=== PATIENT | female | born 1940 | race Caucasian/White ===

== ENCOUNTER 2021-03-09 10:12 | Emergency (ER) | payer MEDICARE, MEDICAID, SELFPAY ==
[2021-03-09 10:31] VITALS: BP 169/76; PULSE 96; RESP 18; TEMP 36.4; O2SAT 98; BMI 26.8
--- NOTE | 2021-03-09 13:04 | ED_ITS ---
HPI - General Adult General Chief complaint: General Medical Stated complaint: FACIAL PAIN R SIDE Time Seen by Provider: 03/09/21 12:38 Source: patient Mode of arrival: ambulatory Limitations: no limitations History of Present Illness HPI narrative: 80-year-old female who presents emergency department for evaluation right-sided facial pain. The patient states that yesterday she developed a pain on the right side of her face along the nasal bridge. The pain started when she was eating. She states the pain then resolved and came back at 11:00 p.m.. She states the pain has been constant. She describes the pain is a sharp pain is if something is blocked. The pain waxes and wanes in intensity and occasionally is 10/10. She states she has had nasal congestion. She has had multiple sinus infections and states that she has had a similar pain but the pain has never been this severe. The patient had a right total knee replacement 2 weeks prior. She denied fever, chills, chest pain, shortness of breath, nausea, vomiting. Related Data Previous Rx's Medication Instructions Recorded cephalexin 500 mg capsule 500 mg PO TID 10 Days #30 cap 03/09/21 Allergies Allergy/AdvReac Type Severity Reaction Status Date / Time amoxicillin Allergy Unknown Verified 03/09/21 10:30 doxycycline Allergy Unknown Verified 03/09/21 10:30 Penicillins Allergy Unknown Verified 03/09/21 10:30 sulfamethoxazole Allergy Unknown Verified 03/09/21 10:30 [From Bactrim] trimethoprim [From Allergy Unknown Verified 03/09/21 10:30 Bactrim] Review of Systems Verdana 4l Review of Systems: Yes all other systems are reviewed and Verdana 4d are negative [facility] Past Medical History [facility] Narrative: Past surgical history: Right total knee replacement 2 weeks prior. Social history: She denies tobacco use. She occasionally drinks alcohol. She denies drug use. Medical History GERD (gastroesophageal reflux disease) HTN (hypertension) Rheumatoid arthritis Surgical History Total knee replacement status Physical Exam Verdana 4l Vital Signs: Verdana 4d Verdana 4d Vital Signs: Verdana 4d Verdana 4Bd Last Vital Signs Verdana 4d Real Estate Agent New 4d Real Estate Agent New 4d Temp 97.5 F 03/09/21 10:31 Real Estate Agent New 4d Pulse 96 03/09/21 10:31 Real Estate Agent New 4d Resp 18 03/09/21 10:31 BP 169/76 H 03/09/21 10:31 Pulse Ox 98 03/09/21 10:31 BMI result Body Mass Index 26.8 Const: General: cooperative and no acute distress Orientation/consciousness: oriented to person and oriented to place Limitations: no limitations HENMT: Other: The patient does have some slight swelling along the right maxillary sinus and right nasal fold, this area is tender to palpation, there is no erythema or increased warmth to the skin, she has tenderness with palpation over her right maxillary sinus with no tenderness over the left maxillary sinus or frontal sinuses bilaterally. Head: Yes normal to inspection, Yes normocephalic and Yes atraumatic Ears: external ears normal and TM's normal bilaterally Mouth: Normal oral and palatal mucosa present Throat: Yes posterior oropharynx normal Eyes: General: appearance normal, both eyes and all related structures Pupils: Equal, round and reactive pupils present Neck: Neck: Yes normal visual inspection, Yes no lymphadenopathy, Yes trachea midline and Yes supple Chest: Chest palpation & inspection: normal inspection of the chest and normal palpation of entire chest wall Resp: Effort & Inspection: normal respiratory effort and able to speak in complete sentences Auscultation: clear to auscultation bilaterally Cardio: Rate: regular rate Rhythm: regular rhythm Heart sounds: S1 normal heart sound present, S2 normal heart sound present and no murmurs GI: Inspection: Yes normal to inspection Palpation (GI): Soft to palpation, nontender and no guarding Auscultation: normal bowel sounds : General: Yes no CVA tenderness Back/Spine/Pelvis: Back: no CVA tenderness Skin: General skin exam: no rashes or lesions noted Neuro: General: oriented to person and oriented to place Cranial nerves: Yes CN's II-XII intact bilaterally and Yes Equal, round and reactive pupils present Cognition (Neuro): normal cognition Motor exam (neuro): 5/5 motor strength present throughout Extrem: Other: There is a dressing over the left knee which was not taken down. Patient is able to flex extend her knee without any limitations. Psych: Appearance: grossly normal Speech and movement: Normal speech and movement present Affect: normal affect Attitude: cooperative Thought process: Normal thought process present Course Course Course Narrative: 80-year-old female who presents emergency department for evaluation of right- sided facial pain which began yesterday when she was eating and then has been constant since 2300 hours. The patient does have some slight swelling over the right side of her face with tenderness with palpation of this area and tenderness with palpation of her right maxillary sinus. My impression is the patient has a sinus infection I did discuss this with her. Patient was started on Keflex 500 mg 3 times a day for 10 days. She was advised to take extra- strength Tylenol 2 pills every 4-6 hours as needed for pain. She states she has oxycodone left over for knee surgery and she can take this for pain as well. She was given printed and verbal instructions and discharged home. Discharge Plan Discharge Clinical Impression: Sinusitis Qualifiers: Sinusitis location: maxillary Chronicity: acute Patient Disposition: Home, Self-Care Instructions: Sinusitis (ED) Additional Instructions: At this time, I believe that your pain and your facial tenderness is due to a sinus infection. Take Keflex (cephalexin) 500 mg capsules, 1 pill 3 times a day for 10 days. Take Tylenol (acetaminophen) 500 mg pills, 2 pills every 4-6 hours as needed for pain. Follow-up with your doctor in 2 days. Please return to the emergency department if your symptoms get worse or if you develop any symptoms that are concerning to you. Prescriptions: New cephalexin 500 mg capsule 500 mg PO TID 10 Days Qty: 30 0RF
[2021-03-09] MEDS: Acetaminophen 325 MG TABLET 975 MG PO (13:46)
[2021-03-09] MEDS: cephALEXin 500 MG CAPSULE PO (13:46)
[2021-03-09 13:57] VITALS: BP 167/79; PULSE 99; RESP 18; TEMP 36.9; O2SAT 97
== END 2021-03-09 14:00 | disposition home or self-care (01) ==
PROVIDERS: Emergency Provider Emergency Medicine Emergency Medical Services
DX: J01.00 Acute maxillary sinusitis, unspecified (principal); I10 Essential (primary) hypertension
CPT/HCPCS: 99283; 99284

== ENCOUNTER 2021-03-11 12:18 | Emergency (ER) | payer MEDICARE, MEDICAID, SELFPAY ==
--- NOTE | ~2021-03-11 | CT_ITS ---
EXAMINATION: CT MAXILLOFACIAL WITH CONTRAST CLINICAL INFORMATION: Right-sided facial swelling and pain. COMPARISON: None. TECHNIQUE: Multidetector helical imaging was performed in the axial plane with generation of coronal and sagittal reformatted images. The examination was performed after intravenous administration of 85 mL of Omnipaque [address] examination was performed using dose optimization techniques as appropriate, variously including the following: *Automated exposure control *Adjustment of mA and/or kV according to patient size (this includes techniques or standardized protocols for targeted exams where dose is matched to indication/reason for exam; i.e. extremities or head) *Use of iterative reconstruction technique DLP: 379 mGy-cm. FINDINGS: The paranasal sinuses are well aerated. No air-fluid levels are seen. There is a rightward deviation of the nasal septum. The ostiomeatal complexes are clear. The lamina papyracea are intact. The ethmoid roofs are asymmetric. The carotid canals are normally covered by bone. No soft tissue inflammatory changes are identified, though assessment at the level of the oral cavity is somewhat limited due to extensive dental amalgam artifacts. A multinodular thyroid gland is partially visualized. No cervical adenopathy is seen. The carotid sheath vasculature opacifies normally. There is no abnormal enhancement. No periapical disease is seen. The mastoid air cells and visualized middle ear cavities are well aerated. The orbits are normal. The TMJs are unremarkable. The imaged portions of the brain demonstrate no acute abnormality. CT/CT facial bones w con IMPRESSION: No soft tissue inflammatory changes or acute process with limited assessment the level of the oral cavity due to dental amalgam artifacts. No abnormal enhancement. Clear paranasal sinuses. Partially visualized multinodular thyroid gland.
[2021-03-11 12:43] VITALS: BP 156/66; PULSE 97; RESP 16; TEMP 36; O2SAT 98; BMI 26.8
[2021-03-11 14:07] LABS: MANUAL DIFF FLAG NO
--- NOTE | 2021-03-11 14:11 | ED_ITS ---
HPI - General Adult General Chief complaint: General Medical Stated complaint: Sinus pain Time Seen by Provider: 03/11/21 13:12 Source: patient and family Mode of arrival: ambulatory Limitations: no limitations History of Present Illness HPI narrative: 80-year-old female with a past medical history of GERD, hypertension, rheumatoid arthritis here with reports of right-sided facial pain. Of note the patient was seen here on March 09 for similar complaints and diagnosed with a sinus infection and discharged on cephalexin. Patient tells me she has taken 6 doses of the antibiotic but is continuing to have pain. Patient tells me the pain is constant over the right face it is worsened with moving her mouth, eating or drinking. Patient tells me that she does have history of multiple sinus infections previously and this does feel similar but is much more severe in nature. The patient had a total right knee 2 weeks ago. She has some oxycodone home and she did take 1 dose yesterday which seemed to help her pain. No fevers, chills, difficulty swallowing or breathing. Patient does have pain that is worsened with opening her mouth. She tells me that she feels like her right-sided for sinuses is clogged. There is no nasal drainage. Related Data Previous Rx's Medication Instructions Recorded cephalexin 500 mg capsule 500 mg PO TID 10 Days #30 cap 03/09/21 carbamazepine 100 mg 100 mg PO BID #60 tab 03/11/21 tablet,extended release,12 hr Allergies Allergy/AdvReac Type Severity Reaction Status Date / Time amoxicillin Allergy Unknown Verified 03/09/21 10:30 doxycycline Allergy Unknown Verified 03/09/21 10:30 Penicillins Allergy Unknown Verified 03/09/21 10:30 sulfamethoxazole Allergy Unknown Verified 03/09/21 10:30 [From Bactrim] trimethoprim [From Allergy Unknown Verified 03/09/21 10:30 Bactrim] Review of Systems Verdana 4l Review of Systems: Yes all other systems are reviewed and Verdana 4d are negative Verdana 4l Constitutional: Verdana 4d Constitutional: Verdana 4d Verdana 4d Reports no additional constitutional complaints, Denies body ache(s), Denies chills, Denies fever(s), Denies headache(s) and Denies weakness Verdana 4l Eyes: Verdana 4d Verdana 4d Eyes: Verdana 4d Reports no additional eye complaints and Denies change in vision Verdana 4l ENT: Verdana 4d Reports system reviewed and no additional complaints, except as documented, Denies dizziness, Denies headache(s), Reports nasal congestion, Denies nasal discharge, Denies neck pain, Reports sinus pain and Reports sinus pressure Verdana 4l Cardiovascular: Verdana 4d Cardiovascular: Verdana 4d Verdana 4d Reports no additional cardiovascular complaints, Denies chest pain, Denies leg edema and Denies dyspnea Verdana 4l Respiratory: Verdana 4d Verdana 4d Respiratory: Verdana 4d Reports no additional respiratory complaints, Denies cough and Denies dyspnea Verdana 4l Gastrointestinal: Verdana 4d Gastrointestinal: Verdana 4d Verdana 4d Reports no additional gastrointestinal complaints, Denies abdominal pain, Denies diarrhea, Denies nausea and Denies vomiting Verdana 4l Genitourinary: Verdana 4d Verdana 4d Genitourinary: Verdana 4d Reports no additional female genitourinary complaints and Denies urinary incontinence Verdana 4l Musculoskeletal: Verdana 4d Musculoskeletal: Verdana 4d Verdana 4d Reports no additional musculoskeletal complaints, Denies back pain, Denies arthralgias, Denies joint swelling, Denies neck pain, Denies numbness and Denies tingling Verdana 4l Integumentary/Breasts: Verdana 4d Skin/Breast: Verdana 4d Verdana 4d Reports system reviewed and no additional complaints, except as docu and Denies rash Verdana 4l Neurologic: Verdana 4d Reports system reviewed and no additional complaints, except as documented, Denies Abnormal speech present, Denies dizziness, Denies headache(s), Denies numbness, Denies tingling and Denies weakness PMFSH Past Medical History Attestation statement: The following information was validated with the patient. Source: old records reviewed and nursing notes reviewed Medical History GERD (gastroesophageal reflux disease) HTN (hypertension) Rheumatoid arthritis Surgical History Total knee replacement status Social History Social History Advance Directives: No Advance Directives Information Provided: No Physical Exam Verdana 4l Vital Signs: Verdana 4d Verdana 4d Vital Signs: Verdana 4d Verdana 4Bd Last Vital Signs Verdana 4d Pet Adoption Counselor New 4d Pet Adoption Counselor New 4d Temp 96.8 F 03/11/21 12:43 Pet Adoption Counselor New 4d Pulse 86 03/11/21 17:16 Pet Adoption Counselor New 4d Resp 14 03/11/21 17:16 BP 140/88 H 03/11/21 15:13 Pulse Ox 97 03/11/21 17:16 BMI result Body Mass Index 26.8 Const: General: cooperative, healthy appearing, comfortable and no acute distress Orientation/consciousness: patient oriented x3 Limitations: no limitations HENMT: Other: No temporal artery tenderness Head: Yes normal to inspection Ears: hearing grossly normal bilaterally and TM's normal bilaterally General nose exam: Normal external nose present and Abnormal mucous membranes and turbinates present (Right side with erythema and swelling) Face and sinus: Yes normal facial exam and Yes sinus tenderness (Right-sided tenderness to palpate) Mouth: Normal oral and palatal mucosa present Throat: Yes posterior or opharynx normal, Yes tonsils normal and Yes uvula midline Eyes: General: appearance normal, both eyes and all related structures Pupils: Equal, round and reactive pupils present Neck: Neck: Yes normal visual inspection, Yes full ROM, Yes no lymphadenopathy and Yes no meningeal signs Chest: Chest palpation & inspection: normal inspection of the chest Resp: Effort & Inspection: normal respiratory effort Auscultation: clear to au scultation bilaterally Cardio: Rate: regular rate Rhythm: regular rhythm Peripheral pulses: Peripheral pulses 2+ throughout GI: Inspection: Yes normal to inspection Palpation (GI): Soft to palpation and nontender Auscultation: normal bowel sounds Back/Spine/Pelvis: Thoracic/Lumbar Spine: thoracic and lumbar spine normal to inspection Skin: General skin exam: no rashes or lesions noted Neuro: General: patient oriented x3, no meningeal signs, no focal motor deficits and normal sensation to monofilament Cranial nerves: Yes CN's II-XII intact bilaterally, Yes Equal, round and reactive pupils present, Yes Bilaterally intact EOM present, Yes Nystagmus not present and Yes Normal facial strength present Cognition (Neuro): normal cognition Speech: No Abnormal speech present Gait exam (Neuro): Normal gait present Motor exam (neuro): 5/5 motor strength present throughout Sensory Exam: Normal double simultaneous stimulation for sensation Extrem: General: Yes normal to inspection Course Course Course Narrative: 80-year-old female here with reports of right-sided facial pain and swelling with a feeling of sinus pressure and congestion since 03/08. Started on cephalexin on March 09 as patient felt that this was similar to her previous sinus infections. Patient has taken 6 doses with continued symptoms. Symptoms now seem worsened with drinking, eating, movement of the jaw and face. On exam there is some slight swelling and certainly tenderness over the right maxillary sinus. There is also some nasal turbinate erythema and swelling on exam. The face is exquisitely tender on the right side to touch and is worsened with any talking or movement of the jaw. Will check labs, CT facial bones, provide analgesia 1739-CT negative. Labs are unremarkable with the exception of mildly inflammatory markers are elevated. Exam is consistent with trigeminal neuralgia. This was discussed with Dr. Shaikh and our plan was to start the patient on Tegretol 100 mg twice a day with her following up with Neurology and primary care. Reviewed worrisome signs and symptoms of when to return to the emergency d epartment. Comfortable discharge home. Medical Decision Making MDM Narrative Medical decision making narrative: Trigeminal neuralgia, temporal arteritis, facial cellulitis versus abscess Medical Records Medical records reviewed: Yes I reviewed the patient's medical records. Lab Data Lab results reviewed: Yes I reviewed the patient's lab results. Result diagrams: 03/11/21 14:01 03/11/21 14:01 Labs: Lab Results 03/11/21 03/11/21 03/11/21 Range/Units 14:01 14:01 14:01 WBC 6.2 (4.8-10.8) X10*3/uL RBC 4.12 L (4.20-5.50) X10*6/uL Hgb 11.9 L (12.0-16.0) g/dl Hct 37.9 (37.0-47.0) % MCV 92.0 (80.0-98.0) fL MCH 28.9 (27.0-33.0) pg MCHC 31.4 (31.0-35.0) g/dl RDW 14.2 (11.0-16.0) % Plt Count 401 H (160-400) X10*3/uL MPV 9.9 (9.4-12.3) fL Immature Gran % (Auto) 0.3 (0.0-0.4) % Neut % (Auto) 56.9 (45-73) % Lymph % (Auto) 20.9 (20-40) % [place] % (Auto) 9.4 (2-11) % Eos % (Auto) 10.2 H (0-4) % Baso % (Auto) 2.3 H (0-2) % Lymph # (Auto) 1.3 (1.2-4.9) X10*3/uL [place] # (Auto) 0.6 (0.1-1.2) X10*3/uL Eos # (Auto) 0.6 H (0.0-0.4) X10*3/uL Baso # (Auto) 0.1 (0.0-0.2) X10*3/uL Abs Immat Gran (auto) 0.02 (0.00-0.03) X10*3/uL Absolute Neuts (auto) 3.5 (2.0-8.3) x10*3/uL Absolute Nucleated RBC 0.000 (0.0-0.012) X10*3/uL Nucleated RBC % (auto) 0.0 (0.0-0.2) /100WBC ESR 28 H (0-20) MM/HR Sodium 140 (135-145) mmol/L Potassium 4.5 (3.3-5.1) mmol/L Chloride 105 (96-108) mmol/L Carbon Dioxide 27 (22-29) mmol/L Anion Gap 13 (12-20) BUN 18 H (9-16) mg/dL Creatinine 0.61 (0.5-1.4) mg/dL Estim Creat Clear Calc 62.1 Estimated GFR > 60 Random Glucose 93 (60-115) mg/dL Calcium 9.4 (8.4-10.2) mg/dL C-Reactive Protein 0.78 H (< or = 0.50) mg/dL Imaging Data CT scan - head: Attestation: I personally reviewed and interpreted this imaging study as follows: Radiologist's impression: FINDINGS: The paranasal sinuses are well aerated. No air-fluid levels are seen. There is a rightward deviation of the nasal septum. The ostiomeatal complexes are clear. The lamina papyracea are intact. The ethmoid roofs are asymmetric. The carotid canals are normally covered by bone. No soft tissue inflammatory changes are identified, though assessment at the level of the oral cavity is somewhat limited due to extensive dental amalgam artifacts. A multinodular thyroid gland is partially visualized. No cervical adenopathy is seen. The carotid sheath vasculature opacifies normally. There is no abnormal enhancement. No periapical disease is seen. The mastoid air cells and visualized middle ear cavities are well aerated. The orbits are normal. The TMJs are unremarkable. The imaged portions of the brain demonstrate no acute abnormality. CT/CT facial bones w con IMPRESSION: No soft tissue inflammatory changes or acute process with limited assessment the level of the oral cavity due to dental amalgam artifacts. No abnormal enhancement. Clear paranasal sinuses. Partially visualized multinodular thyroid gland. Discharge Plan Discharge Clinical Impression: Trigeminal neuralgia Patient Disposition: Home, Self-Care Instructions: Trigeminal Neuralgia (ED) Additional Instructions: Continue your antibiotics Follow-up with neurology Soft diet Prescriptions: New carbamazepine 100 mg tablet extended release 12 hr 100 mg PO BID Qty: 60 0RF No Action cephalexin 500 mg capsule 500 mg PO TID 10 Days Qty: 30 0RF Referrals: Ellie Peña MD [Primary Care Provider] - 2 weeks Alex Maloney MD [Physician] - 1 week
[2021-03-11 14:15] LABS: Basophils Absolute Auto 0.1 X10*3/uL (0.0-0.2); Basophils Percent Auto 2.3 % (0-2); Eosinophils Absolute Auto 0.6 X10*3/uL (0.0-0.4); Eosinophils Percent Auto 10.2 % (0-4); Hematocrit 37.9 % (37.0-47.0); Hemoglobin 11.9 g/dl (12.0-16.0); Imm Gran Abs Auto 0.02 X10*3/uL (0.00-0.03); Imm Gran Pct Auto 0.3 % (0.0-0.4); Lymphocytes Absolute Auto 1.3 X10*3/uL (1.2-4.9); Lymphocytes Percent Auto 20.9 % (20-40); Mean Corpuscular HGB Conc 31.4 g/dl (31.0-35.0); Mean Corpuscular Hemoglobin 28.9 pg (27.0-33.0); Mean Platelet Volume 9.9 fL (9.4-12.3); Monocytes Absolute Auto 0.6 X10*3/uL (0.1-1.2); Monocytes Percent Auto 9.4 % (2-11); Neutrophils Absolute Auto 3.5 x10*3/uL (2.0-8.3); Neutrophils Percent Auto 56.9 % (45-73); Platelet Count 401 X10*3/uL (160-400); Red Blood Count 4.12 X10*6/uL (4.20-5.50); Red Cell Distribution Width 14.2 % (11.0-16.0); White Blood Count 6.2 X10*3/uL (4.8-10.8)
[2021-03-11 14:23] LABS: Anion Gap 13 (12-20); Blood Urea Nitrogen 18 mg/dL (9-16); C Reactive Protein 0.78 mg/dL (< or = 0.50); Calcium 9.4 mg/dL (8.4-10.2); Carbon Dioxide 27 mmol/L (22-29); Chloride 105 mmol/L (96-108); Creatinine Clr Calc Pharmacy 62.1; Estimated Glomerular Filt Rate > 60; Glucose Random 93 mg/dL (60-115); Potassium 4.5 mmol/L (3.3-5.1); Sodium 140 mmol/L (135-145)
[2021-03-11] MEDS: Morphine Sulfate 2 MG/ML CARTRIDGE 1 MG IVPUSH (14:29)
[2021-03-11] MEDS: ondansetron HCL 4 MG/2 ML VIAL IVPUSH (14:30)
[2021-03-11 15:06] LABS: Erythrocyte Sedimentation Rate 28 MM/HR (0-20)
[2021-03-11 15:13] VITALS: BP 140/88; PULSE 78; RESP 16; O2SAT 100
[2021-03-11] MEDS: iohexoL 350 MG/ML 100 ML INFUS..BTL IV (15:30)
[2021-03-11] MEDS: Morphine Sulfate 2 MG/ML CARTRIDGE IVPUSH (16:32)
[2021-03-11 16:39] VITALS: PULSE 70; RESP 16; O2SAT 98
[2021-03-11 17:16] VITALS: PULSE 86; RESP 14; O2SAT 97
== END 2021-03-11 18:04 | disposition home or self-care (01) ==
PROVIDERS: Nurse Practitioner Family; Emergency Provider Emergency Medicine Emergency Medical Services; PCP Family Medicine
DX: G50.0 Trigeminal neuralgia (principal); I10 Essential (primary) hypertension
CPT/HCPCS: 36415; 70487; 80048; 85025; 85652; 86140; 96374; 96375; 99284; J2270; J2405; Q9967

== ENCOUNTER 2021-05-14 18:34 | Emergency (ER) | payer MEDICARE, MEDICAID, SELFPAY ==
--- NOTE | ~2021-05-14 | MR_ITS ---
EXAMINATION: MR LUMBAR SPINE WITHOUT CONTRAST CLINICAL INFORMATION: Urinary incontinence. Lower back pain L3-L4. COMPARISON: None TECHNIQUE: MRI of the lumbar spine was obtained using routine sequences without contrast. FINDINGS: There is moderate focal levoscoliotic curvature centered at the L1-L2 level with associated significant right-sided disc height loss. Additional right-sided disc height loss is seen at L2-L3. More diffuse disc height loss is seen at the remaining lumbar levels. There is asymmetric left-sided disc height loss with prominent buttressing osteophytes at L4-L5. No bone marrow edema is seen. The distal spinal cord appears normal. The conus medullaris terminates normally at the L1-L2 level. A sacral Tarlov cyst is noted. There is significant fatty atrophy of the posterior paraspinal musculature. SPINAL LEVELS: T12-L1: Disc bulging asymmetric to the right with encroachment on the right subarticular zone. No foraminal nerve root compression or spinal canal stenosis. L1-L2: Disc bulging asymmetric to the right with mild right subarticular encroachment. Moderate right neural foraminal stenosis with osteophyte seen contacting the exiting right L1 nerve root. No spinal canal stenosis. L2-L3: Disc bulging with moderate facet arthropathy. Mild flattening the ventral thecal sac. No significant neural foraminal stenosis. No spinal canal stenosis. L3-L4: Disc bulging with ligamentum flavum infolding and severe facet arthropathy. No spinal canal stenosis. No significant neural foraminal stenosis. L4-L5: Disc bulging asymmetric to the left with asymmetric severe left facet arthropathy. No spinal canal stenosis. Left subarticular zone is narrowed with abutment of the traversing left L5 nerve root. Left lateral osteophyte compresses the extraforaminal segment of the exiting left L4 nerve root. L5-S1: Disc bulging with prominent left lateral osteophyte causing compression of the extraforaminal left L5 nerve root. No spinal canal stenosis. MR/MR lumbar spine wo con IMPRESSION: Moderate focal levoscoliotic curvature centered at L1-L2. Multilevel degenerative spondylosis without high-grade narrowing of the spinal canal. At L4-L5 there is left subarticular stenosis with abutment of the traversing left L5 nerve root. Prominent lateral osteophyte compresses the extraforaminal left L4 nerve root segment. At L5-S1 there is compression of the extraforaminal left L5 nerve root.
--- NOTE | ~2021-05-14 | CT_ITS ---
EXAMINATION: CT ABDOMEN AND PELVIS WITHOUT CONTRAST CLINICAL INFORMATION: Right flank pain. Concern for kidney stone. COMPARISON: None TECHNIQUE: Multidetector volumetric imaging was performed from the superior aspect of the liver through the pubic symphysis. Sagittal and coronal reformatted images were obtained on the technologist's workstation. This CT examination was performed using dose optimization techniques as appropriate, variously including the following: *Automated exposure control *Adjustment of mA and/or kV according to patient size (this includes techniques or standardized protocols for targeted exams where dose is matched to indication/reason for exam; i.e. extremities or head) *Use of iterative reconstruction technique DLP: 521 mGy-cm FINDINGS: LUNG BASES: The visualized lung bases are unremarkable. Large hiatal hernia. LIVER, GALLBLADDER, AND BILIARY TREE: The liver is normal in size, shape, and attenuation. No focal hepatic lesion or biliary ductal dilatation is present. The gallbladder is unremarkable with no evidence of radiopaque gallstones, gallbladder wall thickening, or obvious pericholecystic inflammatory changes. PANCREAS: Unremarkable. SPLEEN: Unremarkable. ADRENAL GLANDS: Unremarkable. KIDNEYS AND URETERS: The kidneys are normal in size, shape, and attenuation. No hydronephrosis, hydroureter, or calculi seen. No perinephric stranding. BLADDER: Unremarkable. GASTROINTESTINAL TRACT: There are numerous diverticula of the colon. There is no diverticulitis. There is no bowel wall thickening /edema. There is no bowel obstruction. There is a moderate volume of stool in the colon. The appendix is normal . The small bowel loops are unremarkable. The stomach is normal. Large hiatal hernia. Most of the stomach is above the diaphragm. ABDOMINAL WALL: No significant hernia is appreciated. LYMPH NODES: Normal. VASCULAR: Unremarkable. PELVIC VISCERA: Unremarkable. OSSEOUS STRUCTURES: Multilevel degenerative spondylosis of the spine. Levoscoliosis of thoracolumbar spine. CT/CT abdomen pelvis wo con IMPRESSION: No acute abnormality CT scan abdomen and pelvis. Normal kidneys ureter and bladder. No stone or hydronephrosis. 2. Diverticulosis of the colon. No evidence of diverticulitis. There is a large hiatal hernia. Fleischner guidelines were followed.
[2021-05-14 18:55] VITALS: BP 193/71; PULSE 91; RESP 18; TEMP 36.1; O2SAT 95; BMI 29.2
--- NOTE | 2021-05-14 19:47 | ED_ITS ---
HPI - Back Pain/Injury General Chief Complaint: Back Pain/Injury Stated Complaint: back pain, ?UTI Time Seen by Provider: 05/14/21 19:19 Source: patient Mode of arrival: ambulatory Limitations: no limitations History of Present Illness HPI Narrative: This is an 80-year-old female presenting to the emergency department with 3 days of progressively worsening lower back pain. Patient denies trauma to the area however she tells me she does have chronic back pain however this feels different in intensity. She reports severe, stabbing pain. She reports it is a 10/10 and very uncomfortable. She also reports that recently she has noted that she has been incontinent of urine. She denies urinary frequency, urgency, dysuria. No history of back procedures, injections to back no history of IV drug use. Patient denies fevers, chills, nausea, vomiting, chest pain, shortness of breath, weakness. No history of recurrent UTIs or kidney stones. Denies numbness or tingling. Patient tells me that recently she has been leaning to her left side as this is more comfortable and leaning to her right is very uncomfortable. MD elicited complaint: back pain Pertinent past history: prior back pain Onset (ago): day(s) (3) Timing: constant Severity: severe Similar Symptoms Previously: Yes Quality: sharp Location: lumbar spine Radiation: none Exacerbating factors: none Relieving factors: none Associated symptoms: denies other symptoms Related Data Previous Rx's Medication Instructions Recorded cephalexin 500 mg capsule 500 mg PO TID 10 Days #30 cap 03/09/21 carbamazepine 100 mg 100 mg PO BID #60 tab 03/11/21 tablet,extended release,12 hr lidocaine 5 % topical patch 1 patch TOPICAL DAILY PRN #15 ea 05/15/21 oxycodone 5 mg tablet 2.5 mg PO TID PRN #8 tab 05/15/21 Allergies Allergy/AdvReac Type Severity Reaction Status Date / Time amoxicillin Allergy Unknown Verified 03/09/21 10:30 doxycycline Allergy Unknown Verified 03/09/21 10:30 Penicillins Allergy Unknown Verified 03/09/21 10:30 sulfamethoxazole Allergy Unknown Verified 03/09/21 10:30 [From Bactrim] trimethoprim [From Bactrim] Allergy Unknown Verified 03/09/21 10:30 Review of Systems Review of Systems: Constitutional : No Weight loss, No Fever, No Chills, No Fatigue, No Malaise ENT/Mouth : No sore throat, No Rhinorrhea Eyes: No Eye Pain, No Swelling, No Redness Cardiovascular : No Chest Pain, No SOB, No Dyspnea on Exertion, No Orthopnea, No Edema, No Palpitations Respiratory : No Cough, No Sputum, No Wheezing Gastrointestinal : No Nausea, No Vomiting, No Diarrhea, No Constipation, No abdominal Pain, No Hematochezia, No Melena Genitourinary : No Dysuria, No Urinary Frequency, No Hematuria, + urinary incontinence Musculoskeletal : + joint pain, No Myalgias, No Joint Swelling Skin : No Skin Lesions, No rash Neuro : No Weakness, No Numbness, No Dizziness, No Headache Psych : No Anxiety/Panic, No Depression All other systems reviewed and are negative Yes all other systems are reviewed and are negative [facility] Past Medical History Attestation statement: The following information was validated with the patient. Source: old records reviewed and nursing notes reviewed Medical History GERD (gastroesophageal reflux disease) HTN (hypertension) Rheumatoid arthritis Surgical History Total knee replacement status Social History Social History Advance Directives: No Advance Directives Information Provided: No Physical Exam Vital Signs: Vital Signs: Last Vital Signs Temp 97.8 F 05/14/21 21:25 Pulse 86 05/14/21 21:25 Resp 18 05/14/21 18:55 BP 150/52 H 05/14/21 21:25 Pulse Ox 96 05/14/21 21:25 BMI result Body Mass Index 29.2 Patient noted to be slightly hypertensive likely secondary to pain. Appearance: Alert.? Oriented X3.? No acute distress.? Patient ambulating with a steady gait however noted to be leaning to her left side. She appears uncomfortable. Head: Normocephalic, atraumatic, no step-offs or deformities Eyes: Pupils equal, round and reactive to light.? ENT: Pharynx normal.? Neck: Normal inspection.? Neck supple.? CVS: Normal heart rate and rhythm.? Pulses normal.? Respiratory: No respiratory distress.? Breath sounds normal.? Abdomen: Soft and nontender.? Skin: Skin warm and dry.? Normal skin color.? Normal skin turgor.? Extremities: No lower extremity edema.? No calf ttp. 5/5 strength to bilateral upper and lower extremities. 2+ patellar reflexes equal bilateral. Rectal exam: Normal anal wink, good rectal tone with external hemorrhoids. Back: + midline tenderness in lumbar region + paraspinous tenderness in lumbar region, no C-spine tenderness, full range of motion, no CVA tenderness bilaterally Neuro: Oriented X 3.? No motor deficit.? No sensory deficit. CN 2-12 intact . Sensation intact to lower extremities no saddle paresthesias. Course Reevaluation(s) Reevaluation #1: I discussed this case with my attending Dr. Viera who recommends an MRI of the lumbar spine to rule out cauda equina as patient is having new onset urinary incontinence. At this time an emergent MRI has been ordered. Patient's urine is clean so unlikely that a UTI is causing urinary incontinence. Time: 20:22 Reevaluation #2: CBC within normal limits. Chemistry with no acute electrolyte abnormalities. Alk-phos slightly elevated. Urine clean. CT of the abdomen and pelvis with diverticulosis of the colon. No evidence of diverticulitis. Large hiatal hernia is noted. MRI with no signs of cauda equina. At this time patient will be discharged home with pain medicine as this is likely lumbar radiculopathy. Advise patient return with new or worsening symptoms. Comfortable discharge home with PCP follow-up. Time: 00:06 MDM - Back Pain/Injury [facility] Narrative Medical decision making narrative: 1945 80 yo f presents w/ urinary incontinence, severe back pain X3 days. Denies weakness, stool incontinence, numbness, tingling, saddle paresthesias. PE significant for patient leaning to her left side ambulating with a steady gait, normal rectal exam mid rectal, pain to palpation to midline of lumbar region around L3-L4, paraspinous tenderness in the lumbar region. Negative straight leg raise bilaterally. Neuro exam nonfocal no saddle paresthesias. Bilateral patellar reflexes 2+ equal bilateral. Based on patient history and physical examination unlikely epidural abscess, low suspicion for cauda equina as patient has no saddle paresthesias, no weakness, no stool incontinence in normal reflexes. Plan at this time is CT of the lumbar spine with contrast. Medical Records Attestation: I reviewed the patient's medical records. Lab Data Attestation: I reviewed the patient's lab results. Result diagrams: 05/14/21 20:01 05/14/21 20:01 Labs: Lab Results 05/14/21 05/14/21 05/14/21 Range/Units 20:01 20:01 20:01 WBC 5.0 (4.8-10.8) X10*3/uL RBC 4.52 (4.20-5.50) X10*6/uL Hgb 12.8 (12.0-16.0) g/dl Hct 40.0 (37.0-47.0) % MCV 88.5 (80.0-98.0) fL MCH 28.3 (27.0-33.0) pg MCHC 32.0 (31.0-35.0) g/dl RDW 13.2 (11.0-16.0) % Plt Count 260 D (160-400) X10*3/uL MPV 10.7 (9.4-12.3) fL Immature Gran % (Auto) 0.4 (0.0-0.4) % Neut % (Auto) 64.4 (45-73) % Lymph % (Auto) 24.3 (20-40) % [place] % (Auto) 9.9 (2-11) % Eos % (Auto) 0.2 (0-4) % Baso % (Auto) 0.8 (0-2) % Lymph # (Auto) 1.2 (1.2-4.9) X10*3/uL [place] # (Auto) 0.5 (0.1-1.2) X10*3/uL Eos # (Auto) 0.0 (0.0-0.4) X10*3/uL Baso # (Auto) 0.0 (0.0-0.2) X10*3/uL Abs Immat Gran (auto) 0.02 (0.00-0.03) X10*3/uL Absolute Neuts (auto) 3.2 (2.0-8.3) x10*3/uL Absolute Nucleated RBC 0.000 (0.0-0.012) X10*3/uL Nucleated RBC % (auto) 0.0 (0.0-0.2) /100WBC Sodium 135 (135-145) mmol/L Potassium 4.3 (3.3-5.1) mmol/L Chloride 99 (96-108) mmol/L Carbon Dioxide 27 (22-29) mmol/L Anion Gap 13 (12-20) BUN 12 (9-16) mg/dL Creatinine 0.63 (0.5-1.4) mg/dL Estim Creat Clear Calc 60.2 Estimated GFR > 60 Random Glucose 100 (60-115) mg/dL Calcium 9.3 (8.4-10.2) mg/dL Magnesium 2.0 (1.6-2.6) mg/dL Total Bilirubin 0.2 (0.0-1.0) mg/dL AST 19 (5-31) U/L ALT 14 (0-31) U/L Alkaline Phosphatase 125 H (39-117) U/L Total Protein 7.5 (6.5-8.0) g/dL Albumin 4.5 (3.5-5.0) g/dL Urine Color YELLOW Urine Appearance CLEAR Urine pH 7.0 (5.0-8.0) Ur Specific [place] 1.015 (1.005-1.025) Urine Protein NEG (NEG-TRACE) MG/DL Urine Glucose (UA) NEG (NEG) MG/DL Urine Ketones NEG (NEG) MG/DL Urine Blood NEG (NEG) Urine Nitrite NEG (NEG) Ur Leukocyte Esterase NEG (NEG) Critical Care Time Critical Care Time Critical Care Time: No Discharge Plan Discharge Clinical Impression: Strain of lumbar region, Lumbar radiculopathy Patient Disposition: Home, Self-Care Instructions: Acute Low Back Pain (ED) Additional Instructions: Take your medications as prescribed. If you were prescribed antibiotics today, it is important that you take your medication to their entirety, do not skip any doses, do not finish them early. Follow-up with your primary care provider this week. Return to the emergency department with new or worsening symptoms. Such as fevers, chills, chest pain, shortness of breath, nausea, vomiting, dizziness, headache, vision changes, lethargy, inability to control bladder or bowel, weakness In case of emergency call 911 MR/MR lumbar spine wo con IMPRESSION: Moderate focal levoscoliotic curvature centered at L1-L2. Multilevel degenerative spondylosis without high-grade narrowing of the spinal canal. At L4-L5 there is left subarticular stenosis with abutment of the traversing left L5 nerve root. Prominent lateral osteophyte compresses the extraforaminal left L4 nerve root segment. At L5-S1 there is compression of the extraforaminal left L5 nerve root. CT/CT abdomen pelvis wo con IMPRESSION: No acute abnormality CT scan abdomen and pelvis. Normal kidneys ureter and bladder. No stone or hydronephrosis. 2. Diverticulosis of the colon. No evidence of diverticulitis. There is a large hiatal hernia.? Prescriptions: New lidocaine 5 % adhesive patch,medicated 1 patch topical DAILY PRN (Reason: pain) Qty: 15 0RF Rx Instructions: leave on most painful area for up to 12 hrs oxycodone 5 mg tablet 2.5 mg PO TID PRN (Reason: pain) Qty: 8 0RF Rx Instructions: Patient can partially filled prescription upon request. No Action cephalexin 500 mg capsule 500 mg PO TID 10 Days Qty: 30 0RF carbamazepine 100 mg tablet extended release 12 hr 100 mg PO BID Qty: 60 0RF Referrals: Ellie Peña MD [Primary Care Provider] - 1 week
[2021-05-14 20:09] LABS: MANUAL DIFF FLAG NO
[2021-05-14 20:11] LABS: Basophils Percent Auto 0.8 % (0-2); Eosinophils Percent Auto 0.2 % (0-4); Hemoglobin 12.8 g/dl (12.0-16.0); Imm Gran Abs Auto 0.02 X10*3/uL (0.00-0.03); Imm Gran Pct Auto 0.4 % (0.0-0.4); Lymphocytes Absolute Auto 1.2 X10*3/uL (1.2-4.9); Lymphocytes Percent Auto 24.3 % (20-40); Mean Corpuscular Hemoglobin 28.3 pg (27.0-33.0); Mean Corpuscular Volume 88.5 fL (80.0-98.0); Mean Platelet Volume 10.7 fL (9.4-12.3); Monocytes Absolute Auto 0.5 X10*3/uL (0.1-1.2); Monocytes Percent Auto 9.9 % (2-11); Neutrophils Absolute Auto 3.2 x10*3/uL (2.0-8.3); Neutrophils Percent Auto 64.4 % (45-73); Platelet Count 260 X10*3/uL (160-400); Red Blood Count 4.52 X10*6/uL (4.20-5.50); Red Cell Distribution Width 13.2 % (11.0-16.0)
[2021-05-14 20:12] LABS: Appearance Urine CLEAR; Color Urine YELLOW; Glucose Urine UA NEG (NEG); Leukocyte Esterase Urine NEG (NEG); Nitrite Urine NEG (NEG); Specific Gravity - Urine 1.015 (1.005-1.025); Urine Blood NEG (NEG); Urine Ketones NEG (NEG); Urine Protein NEG (NEG-TRACE)
[2021-05-14 20:27] LABS: Alanine Aminotransferase 14 U/L (0-31); Albumin Level 4.5 g/dL (3.5-5.0); Alkaline Phosphatase 125 U/L (39-117); Anion Gap 13 (12-20); Aspartate Amino Transferase 19 U/L (5-31); Bilirubin Total 0.2 mg/dL (0.0-1.0); Blood Urea Nitrogen 12 mg/dL (9-16); Calcium 9.3 mg/dL (8.4-10.2); Carbon Dioxide 27 mmol/L (22-29); Chloride 99 mmol/L (96-108); Creatinine Clr Calc Pharmacy 60.2; Estimated Glomerular Filt Rate > 60; Glucose Random 100 mg/dL (60-115); Potassium 4.3 mmol/L (3.3-5.1); Sodium 135 mmol/L (135-145); Total Protein 7.5 g/dL (6.5-8.0)
[2021-05-14 21:25] VITALS: BP 150/52; PULSE 86; TEMP 36.6; O2SAT 96
[2021-05-14] MEDS: Morphine Sulfate Immed Release 15 MG TABLET PO (23:06)
[2021-05-14] MEDS: Ketorolac Tromethamine 15 MG/ML VIAL IVPUSH (23:07)
[2021-05-15 00:30] VITALS: BP 115/54; PULSE 73; RESP 17; O2SAT 94
[2021-05-15] MEDS: Lidocaine 4 % Patch ADH..PATCH 1 PATCH TRANSDERMA (00:37)
== END 2021-05-15 00:45 | disposition home or self-care (01) ==
PROVIDERS: Physician Assistant; Emergency Provider Emergency Medicine; PCP Family Medicine
DX: M54.16 Radiculopathy, lumbar region (principal); M54.50 Low back pain, unspecified; R10.9 Unspecified abdominal pain; Z79.899 Other long term (current) drug therapy
CPT/HCPCS: 36415; 72148; 74176; 80053; 81003; 83735; 85025; 96374; 99284; 99285; J1885

== ENCOUNTER 2022-03-22 12:52 | Outpatient (REF) | payer MEDICARE, MEDICAID, SELFPAY ==
--- NOTE | ~2022-03-22 | US_ITS ---
EXAMINATION: US LEFT BUTTOCK, LIMITED/FOLLOW UP CLINICAL INFORMATION: Lump in left buttock. COMPARISON: CT abdomen and pelvis 05/14/2021. TECHNIQUE: High-frequency linear ultrasound transducer was used to examine the area of clinical concern. FINDINGS: There is a 5.1 x 4.9 x 1.7 cm complex cystic mass with areas of calcification seen. Appearances are nonspecific. This could represent an old hematoma or possibly an abscess given the correct clinical setting. US/US pelvic limited IMPRESSION: Complex cystic mass as described above.
== END 2022-03-22 12:53 | disposition home or self-care (01) ==
LOC: HO.US 12:52
PROVIDERS: PCP Family Medicine; Visit Provider Family Medicine
DX: R22.9 Localized swelling, mass and lump, unspecified (principal)
CPT/HCPCS: 76857

== ENCOUNTER 2023-11-17 08:00 | Outpatient (RCR) | payer MEDICARE, MEDICAID, SELFPAY | END 2023-11-21 10:45 | disposition home or self-care (01) | LOC: HO.PT 08:00 | PROVIDERS: PCP Family Medicine; Visit Provider Physician Assistant | DX: R26.89 Other abnormalities of gait and mobility (principal) | CPT/HCPCS: 97110; 97112; 97162; 97530 ==

== ENCOUNTER 2024-07-27 12:50 | Outpatient (REF) | payer MEDICARE, MEDICAID, SELFPAY ==
--- NOTE | ~2024-07-27 | MR_ITS ---
EXAMINATION: MR BRAIN WITHOUT AND WITH CONTRAST CLINICAL INFORMATION: Trigeminal neuralgia. COMPARISON: No prior MRI. Correlation made with CT maxillofacial to 03/11/2021. TECHNIQUE: Multiplanar, multisequence MRI of the brain and 5th cranial nerves was obtained before and after the intravenous administration of 6.5 mL Gadavist. Examination performed on a 1.5 Torrie Siemens high-field unit. FINDINGS: There is no diffusion restriction. There is no intracranial hemorrhage, acute infarction, mass effect, or edema. Ventricles, sulci, and cisterns are normal in size and configuration for patient age. No shift of midline. No abnormal hemosiderin deposition is identified. There are a few scattered punctate and minimally confluent foci of white matter T2 hyperintensity in the periventricular, subcortical, and hemispheric deep white matter. These foci are nonspecific but statistically most likely relate to small vessel ischemic changes. The 5th cranial nerves are normal in caliber and course. There is no mass or abnormal enhancement. Meckel's caves have normal signal. Of note, a branch of the right AICA directly abuts the cisternal segment of the right 5th nerve. The 3rd cranial nerves, 4th cranial nerves, 6th cranial nerves, 7th and 8th nerves, and 9 cm are normal in caliber and signal. The prepontine cistern, CP angle cisterns, IACs, and labyrinthine structures have normal T2 signal. Midline structures appear normally formed. There is a partial empty sella. Posterior fossa structures appear normal. Cerebellar tonsils are appropriately located. Major flow voids are preserved within the skull base. There is no abnormal intra or extra-axial enhancement. The globes and orbital contents demonstrate no abnormalities. There are bilateral lens replacements. Paranasal sinuses are clear bilaterally. The mastoids and tympanic cavities are normally aerated. Extracranial soft tissues demonstrate no abnormalities. No suspicious bone marrow changes are evident. Mild hyperostosis frontalis. Degenerative changes in the right greater than left TM joints. Atlantoaxial joint is normal. MR/MR head/brain wo/w con IMPRESSION: 1. No evidence of intracranial hemorrhage, acute infarction, mass effect, or edema. No abnormal intra or extra-axial enhancement. 2. The 5th cranial nerves are normal in course, caliber, and signal. No abnormal enhancement. Of note, a branch of the right AICA directly abuts the cisternal segment of the right 5th nerve. 3. The remainder of the major cranial nerves are normal in course and caliber without abnormal enhancement. 4. There are mild white matter changes of small vessel ischemia. Electronically signed by: Jin Pacheco MD 07/29/2024 10:25 AM EDT RP
--- OUTSIDE RECORDS SUMMARY | 2024-07-27 12:54 | XMS_ITS ---
Author Name [facility] Organization Unknown Problems Problem Status Onset Date Problem Type Date of Resoluti on Source Recurrent sinusitis active EncounterDiagnosisAc t CCT Seasonal allergies active EncounterDiagnosisAct HHC[facility] Care Team Organization Name Specialty Phone Email Start Date End Da kayla [facility] 07/02/2024
[2024-07-27] MEDS: gadobutroL 7.5 ML VIAL IVPUSH (14:06)
== END 2024-07-27 12:51 | disposition home or self-care (01) ==
LOC: HO.MRI 12:50
PROVIDERS: PCP Family Medicine; Visit Provider Registered Nurse
DX: G50.0 Trigeminal neuralgia (principal)
CPT/HCPCS: 70553; A9585

== ENCOUNTER → 2024-07-27 13:05 | Outpatient (BNV) | payer MEDICARE, MEDICAID, SELFPAY | PROVIDERS: PCP Family Medicine; Visit Provider Radiology Diagnostic Radiology | DX: G50.0 Trigeminal neuralgia (principal) | CPT/HCPCS: 70553 ==

== ENCOUNTER 2024-08-12 09:27 | Outpatient (AMB) | payer MEDICARE, MEDICAID, SELFPAY ==
--- OUTSIDE RECORDS SUMMARY | 2024-08-12 09:59 | XMS_ITS | Clinical Summary ---
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 Name Role Phone Unavailable Primary Care Provider Unavailabl e Encounters Date Type Department Care Team Description 06/25/2024 Transcribe Orders [facility] PRIMARY CARE SCAN Ellie Peña MD Seasonal allergies (Primary Dx); Recurrent sinusitis from Last 3 Months Social History Tobacco Use Types Packs/Day Years Used Date Smoking Tobacco: Never Assessed Comments Unknown Sex and Gender Information Value Date Recorded Sex Assigned at Female 07/02/2024 9:24 AM EDT Legal Sex Female 11:12 AM EDT Gender Identity Female 07/02/2024 9:24 AM EDT Sexual Orientation Heterosexual (straight) 07/02 9:24 AM EDT Plan of Treatment Upcoming Encounters Date Type Department Care Team (Late st Contact Info) Description 09/06/2024 9:15 AM EDT Office Visit [facility] [address] [place] [id number] Katheryn Katz PA-C [address] [place] [id number] Health Maintenance Due Date Last Done Comments DTaP/Tdap/Td Vaccines (1 - Tdap) 11/17/1958 Pneumococcal Vaccines 50+ (1 of 1 - PCV) 11/17/1989 Zoster (Shingles) Vaccine (1 of 2) 11/17/1989 DXA Bone Density (Females,Ag es 65 and older) 11/17/2004 RSV Vaccine 60 years and old er and Patients (1 - 1-dose 75+ series) 11/17/2014 COVID-19 Vaccine ( - 2023-2 5 season) 2023 Influenza Vaccine 09/06/2024 Hepatitis B Vaccines Aged Out No long er eligible based on patient's age to complete this topic Insurance MEDICARE PART A & [facility]
--- NOTE | 2024-08-12 10:04 | MHC.OFFVIS ---
Intake Visit Reasons: f/u after MRI Accompanied by: Other Relationship Allergies amoxicillin Allergy (Verified 08/12/24 10:11) Unknown doxycycline Allergy (Verified 08/12/24 10:11) Unknown Penicillins Allergy (Verified 08/12/24 10:11) Unknown sulfamethoxazole (From Bactrim) Allergy (Verified 08/12/24 10:11) Unknown trimethoprim (From Bactrim) Allergy (Verified 08/12/24 10:11) Unknown Medication List - Last Reconciled 08/12/24 by Radha Ibarra CNP amlodipine 5 mg PO DAILY calcium-vitamin D3-vitamin K 500 mg-1,000 unit-40 mcg tabs PO carbamazepine 150 mg PO BID fluticasone furoate 50 mcg/actuation inhalation leflunomide (Arava) 20 mg PO DAILY loratadine (Claritin) 10 mg PO DAILY losartan 50 mg PO BID omeprazole 20 mg PO DAILY HPI Comments Details: She was here with Irlanda (community nurse). Carbamazepine dose increased to 150mg twice a day at end of 06/2024 and pain seemed to be better. Sharp, jolts of pain lasting few seconds was not happening as often. It may have happened 2x in the last week. She was able to talk, eat, brush teeth, and touch and wash face without triggering pain. She was having more allergy symptoms recently. Claritin was making her drowsy and she was taking medicine at bedtime. She had ENT appointment scheduled for 09/2024. She start sharp, jolts of pain to maxillary area lasting few seconds each time were happening more, usually in the morning time, and were becoming more bothersome. Pain could be triggered by talking, eating, brushing her teeth, and touching her face. TN pain started in mid-late 05/2024 with allergy symptoms. She was getting some occasional, mild jolts of pain to right maxillary area that could be triggered by eating, touching her face, or using electric toothbrush. At that time, pain was not significantly bothersome. TN symptoms worsened over the next four weeks. She increased carbamazepine dose from 50mg twice a day to 100mg twice a day without significant improvement. She had recurrence of TN in 06/2023 which resolved with increasing dose of carbamazepine to 150mg BID. Had recurrence of TN in 02/2023 which resolved with increasing dose of medication to 100mg BID. She also had a mild recurrence of TN on 11/15/22 which resolved with increasing dose of CBZ. She developed acute onset of severe right maxillary pain with pain level 10/10, that would get worse by brushing her teeth, drinking or talking or putting on a mask. She was seen in the emergency room and given antibiotics for sinusitis and went back to the ER 2 days later on next every third because of worsening pain. Facial CT scan was done which was negative for any sinus infection and she was started on carbamazepine 100 mg twice a day for trigeminal neuralgia and had significant improvement. She is able to wash her face and brush her teeth. [facility] Medical History (Updated 08/12/24 @ 10:20 by Radha Ibarra CNP) Trigeminal neuralgia Seizures HTN (hypertension) Rheumatoid arthritis GERD (gastroesophageal reflux disease) Surgical History (Updated 08/08/24 @ 18:26 by Ally Pickering MA) Total knee replacement status Social History (Updated 08/08/24 @ 18:27 by Ally Pickering MA) Patient Tobacco Use Status: Never used Tobacco Review of Systems Const Denies chills, Denies daytime sleepiness, Denies difficulty sleeping, Denies fatigue, Denies fever(s), Denies frequent falls, Denies headache(s), Denies increased appetite, Denies poor appetite, Denies snoring, Denies weakness, Denies weight gain and Denies weight loss Eyes Denies loss of vision ENT Denies vertigo, Denies dizziness, Denies headache(s) and Denies neck pain Card Denies chest pain at rest, Denies chest pain with activity, Denies syncope, Denies leg edema, Denies palpitations, Denies dyspnea and Denies dyspnea on exertion Resp Denies cough, Denies dyspnea, Denies dyspnea on exertion and Denies snoring GI Denies abdominal pain, Denies constipation, Denies heartburn, Denies diarrhea and Denies nausea Denies urinary frequency, Denies urinary incontinence and Denies urinary urgency Musc Denies abnormal gait, Denies back pain, Denies myalgias, Reports arthralgias, Denies neck pain, Denies numbness, Denies stiffness and Denies tingling Neuro Denies abnormal gait, Denies vertigo, Denies dizziness, Denies syncope, Denies frequent falls, Denies headache(s), Denies lack of coordination, Denies loss of vision, Denies memory loss, Denies numbness, Denies Other visual disturbances, Denies restless legs, Denies seizure-like activity, Denies tingling, Denies paresthesias, Denies tremor(s) and Denies weakness Psych Denies anxiety, Denies depression, Denies memory loss, Denies visual hallucinations and Denies hallucinations Endo Denies fatigue and Denies palpitations Physical Exam Const Other: General Appearance:? normal, in no acute distress. Heart:? S1, S2 normal, no murmurs. Lungs:? clear anteriorly and posteriorly. Musculoskeletal:? normal. Extremities:? no edema. Psych:? alert, oriented, cognitive function intact, cooperative with exam. 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 Normal attention, orientation, memory, and affect. Cranial Nerves: Pupils are equal, round, and reactive to light. External ocular muscles are intact. Visual tobar are full, no ptosis. Face is symmetrical, no facial weakness or droop. Facial sensations are normal. Tongue protrudes in midline. Palate elevates symmetrically. Shoulder shrugging is normal Motor Examination: Normal muscle tone, bulk and strength. No atrophy or fasciculations. No drift of the extended upper extremities. DTR 2+. Plantars are flexor. Straight Leg Raisin degrees. Sensory Exam: Normal light touch, temperature, pinprick, vibration, and joint-position sensations. Rhomberg sign is absent. Coordination: No ataxia. No titubation. Grbxvr-dk-mtga, tyus-qhsc-zkjd test, and rapid alternating movements were normal. Gait Exam: Within normal limits. Cerebellar Signs: Jrcurj-aj-wztg and dlkc-dl-ldha is normal. No dysdiadochokinesia. Extrapyramidal System: No tremor, rigidity with normal facial expressions. No bradykinesia. No bradyphrenia. Normal arm swing and posture. No propulsion or retropulsion. Speech: Normal. No dysphasia or dysarthria. Results Reviewed Results Reviewed: Patient: Pascale Avendaño MR#: [id number] : 1940 Acct:[id number] Age/Sex: 83 / F ADM Date: 07/27/24 Loc: HO.MRI Attending Dr: Radha Ibarra [employer] MANAGER Ordering Physician: Radha Ibarra CNP Date of Service: 07/27/24 Procedure(s): MR head/brain wo/w con Accession Number(s): [id number] cc: Ellie Peña MD; Radha Ibarra CNP~ EXAMINATION: MR BRAIN WITHOUT AND WITH CONTRAST CLINICAL INFORMATION: Trigeminal neuralgia. COMPARISON: No prior MRI. Correlation made with CT maxillofacial to 03/11/2021. TECHNIQUE: Multiplanar, multisequence MRI of the brain and 5th cranial nerves was obtained before and after the intravenous administration of 6.5 mL Gadavist. Examination performed on a 1.5 Torrie Siemens high-field unit. FINDINGS: There is no diffusion restriction. There is no intracranial hemorrhage, acute infarction, mass effect, or edema. Ventricles, sulci, and cisterns are normal in size and configuration for patient age. No shift of midline. No abnormal hemosiderin deposition is identified. There are a few scattered punctate and minimally confluent foci of white matter T2 hyperintensity in the periventricular, subcortical, and hemispheric deep white matter. These foci are nonspecific but statistically most likely relate to small vessel ischemic changes. The 5th cranial nerves are normal in caliber and course. There is no mass or abnormal enhancement. Meckel's caves have normal signal. Of note, a branch of the right AICA directly abuts the cisternal segment of the right 5th nerve. The 3rd cranial nerves, 4th cranial nerves, 6th cranial nerves, 7th and 8th nerves, and 9 cm are normal in caliber and signal. The prepontine cistern, CP angle cisterns, IACs, and labyrinthine structures have normal T2 signal. Midline structures appear normally formed. There is a partial empty sella. Posterior fossa structures appear normal. Cerebellar tonsils are appropriately located. Major flow voids are preserved within the skull base. There is no abnormal intra or extra-axial enhancement. The globes and orbital contents demonstrate no abnormalities. There are bilateral lens replacements. Paranasal sinuses are clear bilaterally. The mastoids and tympanic cavities are normally aerated. Extracranial soft tissues demonstrate no abnormalities. No suspicious bone marrow changes are evident. Mild hyperostosis frontalis. Degenerative changes in the right greater than left TM joints. Atlantoaxial joint is normal. MR/MR head/brain wo/w con IMPRESSION: 1. No evidence of intracranial hemorrhage, acute infarction, mass effect, or edema. No abnormal intra or extra-axial enhancement. 2. The 5th cranial nerves are normal in course, caliber, and signal. No abnormal enhancement. Of note, a branch of the right AICA directly abuts the cisternal segment of the right 5th nerve. 3. The remainder of the major cranial nerves are normal in course and caliber without abnormal enhancement. 4. There are mild white matter changes of small vessel ischemia. Electronically signed by: Jin Pacheco MD 07/29/2024 10:25 AM EDT Dictated By: Jin Pacheco MD Signed By: <Electronically signed by Jin Pacheco MD in OV> 07/29/24 1025 Assessment & Plan Assessment & Plan (1) Trigeminal neuralgia: Code(s): G50.0 - Trigeminal neuralgia Category: Medical Plan: She was here with community nurse (Irlanda). MRI results reviewed. Pain was well controlled at this time with current medication. Continue carbamazepine tablet chewable 100mg 1.5 tablets orally twice a day. Plan . Coding Level of Care Code Est Pt Level 4 (68585) Diagnoses Trigeminal neuralgia G50.0
== END 2024-08-12 10:27 | disposition home or self-care (01) ==
LOC: HO.HSM 09:27
PROVIDERS: PCP Family Medicine; Referring Provider Family Medicine; Visit Provider Registered Nurse
DX: G50.0 Trigeminal neuralgia (principal)
CPT/HCPCS: 99214

== ENCOUNTER → 2024-08-12 09:27 | Outpatient (BNVA) | payer MEDICARE, MEDICAID, SELFPAY | PROVIDERS: PCP Family Medicine; Referring Provider Family Medicine; Visit Provider Registered Nurse | DX: G50.0 Trigeminal neuralgia (principal); Z79.899 Other long term (current) drug therapy | CPT/HCPCS: 99212 ==

== ENCOUNTER 2024-09-09 14:13 | Outpatient (REF) | payer MEDICARE, MEDICAID, SELFPAY ==
--- OUTSIDE RECORDS SUMMARY | 2024-09-06 09:15 | XMS_ITS | Encounter Summary ---
Author Organization [facility] Address [address] [place] [address] Care Team Providers Care Medical Staff Specialist Name Role Phone Unavailable Primary Care Provider Unavailabl e Reason for Visit * Reason Comments Allergies Encounter Details Date Type Department Care Team (Late st Contact Info) Description 09/06/2024 9:15 AM EDT Office Visit [facility] [address] [place] [address] Katheryn Katz PA-C [address] [place] [address] Allergic rhinitis, unspecified seasonality, unspecified trigger (Primary Dx); Postnasal drip; Bilateral impacted cerumen Social History Tobacco Use Types Packs/Day Years Used Date Smoking Tobacco: Never Assessed Comments Unknown Sex and Gender Information Value Date Recorded Sex Assigned at Female 07/02/2024 9:24 AM EDT Legal Sex Female 11:12 AM EDT Gender Identity Female 07/02/2024 9:24 AM EDT Sexual Orientation Heterosexual (straight) 07/02 9:24 AM EDT documented as of this encounter Last Filed Vital Signs Vital Sign Reading Time Taken Comments Blood Pressure - - Pulse - - Temperature - - Respiratory Rate - - Oxygen Saturation - - Inhaled Oxygen Concentration - - Weight 65.8 kg (145 lb) 09/06/2024 9:19 AM EDT Height 152.4 cm (5') 09/06/2024 9:19 AM EDT Body Mass Index 28.32 09/06/2024 9:19 AM EDT documented in this encounter Progress Notes * Katheryn Katz PA-C - 09/06/2024 9:15 AM EDT Images from the original note were not included. [address] [facility] [address] [facility] [address] Loc: [phone] Encounter Date: 09/06/2024 History of Present Illness: Pascale Avendaño is a 83 y.o. female who presents today for Chief Complaint Patient presents with Allergies . She has been trying to figure out if she has sinus issues. She has trigeminal neuralgia. She has allergies in her 50's. She is also sensitive to scents. She can feel full and puffy around her eyes.She can get earaches. She can feel sharp pains mostly on the right side of her face. She has been taking claritin but it makes her sleepy. She takes carbamazepine for the neuralgia, which also makes h er very tired. She uses the neti pot. She uses flonase as needed but is unsure if it helps. She gets congestion and post nasal drip. She had an MRI done at [facility] in July. She was told the sinuses were clear. There was a blood vessel pressing on the trigeminal nerve. She reports often having wax build up. She tried using debrox without much change. Physical Exam ENT Physical Exam Constitutional Appearance: patient appears well-developed and well-nourished, Communication/Voice: vocal quality normal; Head and Face Appearance: head appears normal and face appears atraumatic; Palpation: no sinus tenderness present; no TMJ crepitus noted; TMJ not tender bilaterally; Salivary: glands normal; Ear Auricles: right auricle normal; left auricle normal; Ear Canals: bilateral ear canals impacted cerumen observed; Tympanic Membranes: right tympanic membrane normal; left tympanic membrane normal; Nose External Nose: nares patent bilaterally; nasal discharge not visible; Internal Nose: nasal mucosa normal; septum normal; bilateral inferior turbinates normal; Oral Cavity/Oropharynx Lips: normal; Teeth: no trismus noted; Gums: gingiva normal; Tongue: normal; Oral mucosa: normal; Hard palate: normal; Soft palate: normal; Tonsils: normal; Posterior pharyngeal wall: normal; Neck Neck: neck normal; neck palpation normal; normal range of motion; Respiratory Inspection: breathing unlabored; Lymphatic Palpation: lymph nodes normal; Neurovestibular Mental Status: alert and oriented; Psychiatric: mood normal; affect is appropriate; Cranial Nerves: cranial nerves intact; Visit Orders. 1. Allergic rhinitis, unspecified seasonality, unspecified trigger - Respiratory Allergy Profile, Region 1 2. Postnasal drip 3. Bilateral impacted cerumen Past Medical History Past Medical History: Diagnosis Date Cancer (HCC) High blood pressure High cholesterol Past Surgical History: Procedure Laterality Date APPENDECTOMY N/A BREAST SURGERY N/A ORTHOPEDIC SURGERY N/A TONSILLECTOMY No family history on file. Social History[1] Medication List Current Medications[2] Allergies Allergies[3] Procedure Cerumen Removal: Patient was noted to have cerumen impaction. Under binocular microscopy, curette and alligator forceps were used to atraumatically clear the cerumen. Patient tolerated procedure well. Assessment & Plan Pascale was seen today for allergies. Diagnoses and all orders for this visit: Allergic rhinitis, unspecified seasonality, unspecified trigger - Respiratory Allergy Profile, Region 1 - we discussed option for nasal endoscopy, but with recent MRI showing no sinus disease, will deferat this time - recommended allergy testing to help different sinus symptoms from headache disorder - will try to avoid oral antihistamines or use a reduced dose due to sedating side effects - follow up allergy testing Postnasal drip - will consider either azelastine or ipratropium pending her allergy testing Bilateral impacted cerumen - cerumen removed - follow up as needed for cleaning Katheryn Katz PA-C [1] [2] Current Outpatient Medications: amLODIPine (NORVASC) 5 MG tablet, Take 5 mg by mouth 2 times a day., Disp: , Rfl: Calcium Carb-Cholecalciferol 500-10 MG-MCG Chew Tab, Chew 1 tablet., Disp: , Rfl: carBAMazepine (TEGretol) 100 MG chewable tablet, Chew 100 mg 2 (two) times a day., Disp: , Rfl: loratadine (CLARITIN) 10 MG tablet, Take 10 mg by mouth Once before discharge., Disp: , Rfl: losartan (COZAAR) 50 MG tablet, Take 50 mg by mouth 2 times a day., Disp: , Rfl: OMEprazole (PriLOSEC) 20 MG capsule, Take 20 mg by mouth every morning before breakfast., Disp: , Rfl: [3] Allergies Allergen Reactions Doxycycline Unknown/Patient and Family Unable to Define Sulfamethoxazole-Trimethoprim Hives, Rash/Dermatitis and Swelling Penicillins Rash/Dermatitis documented in this encounter Plan of Treatment Scheduled Orders Name Type Priority Associated Diagnoses Orde r Schedule Respiratory Allergy Profile, Region 1 Lab Routine Allergic rhinitis, unspecified seasonality, unspecified trigger Ordered: 09/06/2024 documented as of this encounter Visit Diagnoses Diagnosis Allergic rhinitis, unspecified seasonality, unspecified trigger- Primary Postnasal drip Bilateral impacted cerumen Impacted cerumen documented in this encounter
--- OUTSIDE RECORDS SUMMARY | 2024-09-09 14:23 | XMS_ITS | Clinical Summary ---
Author Organization [facility] Address [address] [place] [address] [place] [phone] Phone Care Team Providers Care Manager Mall Name Role Phone Ellie Peña MD Primary Care Provider [phone] Allergies Active Allergy Reactions Criticality Noted Date Comments Amoxicillin 08/14/2023 Sulfamethoxazole-Trimethoprim 2023 Doxycycline 08/14/2023 Penicillins Rash Low 02/09/2023 Medications amLODIPine (NORVASC) 5 MG tablet Take 5 mg by mouth daily. 4 Active carBAMazepine (TEGRETOL) 100 mg chewable tablet Take 100 mg by mouth 2 (two) times a day. 3 Active losartan (COZAAR) 50 MG tablet 50 mg 2 (two) times a day. 3 Active calcium carbonate-vitam in D3 1,250 mg (500 mg elemental)-400 units per tablet Take 1 tablet by mouth daily. Active folic acid (FOLVITE) 1 MG tablet Take 1 mg by mouth daily. Active acetaminophen (TYLENOL) 500 MG tablet Take 500 mg by mouth every 6 (six) hours as needed for pain (specific location in comments). Active leflunomide (ARAVA) 20 MG tabletIndicatio ns:Rheumatoid arthritis involving multiple sites with positive rheumatoid factor Take 1 tablet (20 mg total) by mouth daily. 90 tablet 2 4 Active Additional Information Patient taking differently:20 mg Oral Daily,Taking 1 tab 3 times a week, Reported on 07/10/2024 loratadine (CLARITIN) 10 mg tablet Take 10 mg by mouth as needed for allergies. 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 She had benign FNA of a right 3.3 cm and left inferior 1.2 cm nodule about 5 years ago, cytology report is not available. 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 She is clinically and biochemically euthyroid. Last TSH 1.83 in 01/2023. Last ultrasound in 07/2021 at [facility] reported stable bilateral nodules compared to ultrasound in 05/2020. No compression symptoms in the thyroid bed. -Plan to repeat ultrasound in 02/2024 for continued surveillance because of increased risk of thyroid cancer considering the thymic irradiation as a child. -Monitor TSH yearly or as clinically indicated. -Reviewed symptoms of hypo and hyperthyroidism, patient to call if concern. 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 She has severe deformities but no active synovitis or swelling. Sent her for some baseline labs today. Assessment & Plan (03/12/2023 7:22 PM EST): Positive rheumatoid arthritis very well-controlled on leflunomide 3 times a week. She is chronic severe deformities but no active synovitis. Continue with same dose of leflunomide. Primary osteoarthritis involving multiple joints 03/12/2023 Assessment & Plan (08/17/2023 10:56 AM EDT): Osteoarthritis in multiple joints with no swelling. She can continue with Tylenol as needed. Assessment & Plan (03/12/2023 7:23 PM EST): Osteoarthritis in multiple joints with no swollen joints. She can take Tylenol 650 mg as needed for pain. Advised her to try and avoid oral NSAIDs. Encounters Date Type Department Care Team Description 07/10/2024 9:22 AM EDT - 07/10/2024 11:59 PM EDT Hospital Encounter [facility] [address] [place] [address] Juan Bliss MD Discharge Disposition: Home or Self Care 07/10/2024 9:00 AM EDT Office Visit [facility] [address] [place] [address] Juan Bliss MD Rheumatoid arthritis involving multiple sites with positive rheumatoid factor (Primary Dx); Primary osteoarthritis involving multiple joints; High risk medications (not anticoagulants) long-term use; Immunosuppression due to drug therapy 07/10/2024 Telephone [facility] [address] [place] [address] Juan Bliss MD Appointment from Last 3 Months Social History Tobacco Use Types Packs/Day Years Used Date Smoking Tobacco: Never Smokeless Tobacco: Never Tobacco Cessation:Counseling Given: Not Answered Alcohol Use Standard Drinks/Week Comments Never 0 (1 standard drink = 0.6 oz pur e alcohol) Education Answer Date Recorded Are you interested in more education? Not on octaviano e 09/16/2022 Are you concerned about learning? Not on file 09/16/2022 No 09/16/2022 No 09/16/2022 Digital Access Answer Date Recorded No 09/16/2022 No 09/16/2022 Reliable internet access at home? Not on file 09/16/2022 Device with a working camera? Not on file Comments Unknown Sex and Gender Information Value Date Recorded Sex Assigned at Not on file Legal Sex Female 2:37 PM EDT Gender Identity Not on file Sexual Orientation Not on file Last Filed Vital Signs Vital Sign Reading Time Taken Comments Blood Pressure 118/86 07/10/2024 8:56 AM EDT Pulse 77 07/10/2024 8:56 AM EDT Temperature - - Respiratory Rate - - Oxygen Saturation 98% 07/10/2024 8:56 AM EDT Inhaled Oxygen Concentration - - Weight 66.7 kg (147 lb) 07/10/2024 8:56 AM EDT Height 152.4 cm (5') 08/14/2023 10:41 AM EDT Body Mass Index 28.71 08/14/2023 10:41 AM EDT Plan of Treatment Upcoming Encounters Date Type Department Care Team (Late st Contact Info) Description 01/15/2025 11:00 AM EST Office Visit [facility] [address] [place] [address] [place] [address] Kailey Rodriguez MD [address] [place] [phone] [email or web address] Health Maintenance Due Date Last Done Comments CARBAMAZEPINE (TEGRETOL) LEVEL 1940 DEPRESSION SCREENING 1952 ZOSTER VACCINES (1 of 2) 11/17/1959 COVID-19 VACCINE (7 - Pfizer risk 2023- season) 2024 12/02/2023, 12/02/2023, 11/30/2022, Additional history exists CREATININE LEVEL 07/10/2025 07/10/2024, 09/2023, 02/09/2023 POTASSIUM LEVEL 07/10/2025 07/10/2024, 07/0 09/2023, 02/09/2023 Adult Td,Tdap Booster 10/19/2032 10/19/2022 PNEUMOCOCCAL VACCINES (50+ years) Completed 07/13/2022 RSV VACCINE Completed 02/15/2023 OSTEOPOROSIS SCREENING INITIAL (ONE-TIME) Completed 03/07/2023 HEPATITIS A VACCINES Aged Out No long er eligible based on patient's age to complete this topic HIB VACCINES Aged Out No longer eligi ble based on patient's age to complete this topic MENINGOCOCCAL VACCINES (ACWY) Aged Out No longer eligible based on patient's age to complete this topic MENINGOCOCCAL VACCINES (B) Aged Out N o longer eligible based on patient's age to complete this topic Medical Devices Not on file Procedures Procedure Name Priority Date/Time Associated Diagnosis Comments COMPREHENSIVE METABOLIC PANEL Routine 07/10/2024 9:27 AM EDT Rheumatoid arthritis involving multiple sites with positive rheumatoid factor CBC Routine 07/10/2024 9:27 AM EDT Rheumatoid arthritis involving multiple sites with positive rheumatoid factor C-REACTIVE PROTEIN Routine 07/10/2024 9: 27 AM EDT Rheumatoid arthritis involving multiple sites with positive rheumatoid factor SEDIMENTATION RATE (ESR) Routine 07/10/2024 9:27 AM EDT Rheumatoid arthritis involving multiple sites with positive rheumatoid factor HM DEXA SCAN Routine 03/07/2023 5:41 PM EST from Last 3 Months or Most Recently Relevant to Health Maintenance Results * (ABNORMAL) Comprehensive metabolic panel (07/10/2024 9:27 AM EDT) SODIUM 132(L) 133 - 146 mmol/L [facility] POTASSIUM 4.2 3.3 - 5.1 mmol/L [facility] CHLORIDE 94(L) 96 - 108 mmol/L [facility] CO2 27 21 - 35 mmol/L [facility] BUN 16 6 - 19 mg/dL [facility] CREATININE 0.50 0.5 - 1.5 mg/dL [facility] GLUCOSE 86 70 - 99 mg/dL [facility] ALBUMIN 4.3 3.9 - 4.8 g/dL [facility] TOTAL PROTEIN 7.0 6.5 - 8.0 g/dL [facility] CALCIUM 9.1 8.4 - 10.3 mg/dL [facility] ALKALINE PHOSPHATASE 92 39 - 117 U/L [facility] TOTAL BILIRUBIN 0.3 0.0 - 1.2 mg/dL [facility] AST 19 0 - 37 U/L [facility] ALT 12 0 - 40 U/L [facility] GLOBULIN 2.7 1 - 4.8 g/dL [facility] EGFR 92 >59 mL/min/1.7 3m2 [facility] Comment:Estimated glomerular filtration rate calculated using the CKD-EPI refit equation. ANION GAP 15 10 - 20 mmol/L [facility] Blood 07/10/2024 9:27 AM EDT 07/10/2024 9:32 AM EDT us Juan Bliss MD LAB BLOOD ORDERABLES Final Res ult [facility] [address] [place] [address] * Sedimentation rate (ESR) (07/10/2024 9:27 AM EDT) ESR 7 0 - 30 mm/h [facility] Blood 07/10/2024 9:27 AM EDT 07/10/2024 9:32 AM EDT us Juan Bliss MD LAB BLOOD ORDERABLES Final Res ult Performing Organization Address [facility]/ZIP Co de Phone Number [address] [phone] * (ABNORMAL) CBC (07/10/2024 9:27 AM EDT) WBC 3.63(L) 4.00 - 11.00 K/uL [facility] RBC 4.43 4.00 - 5.20 M/uL [facility] HGB 13.1 12.0 - 16.0 g/dL [facility] HCT 40.7 36.0 - 46.0 % [facility] PLT 148(L) 150 - 450 K/uL [facility] MCV 91.9 80.0 - 100.0 fL [facility] MCH 29.6 27.0 - 31.0 pg [facility] MCHC 32.2 32.0 - 36.0 g/dL [facility] RDW 12.7 11.5 - 14.5 % [facility] MPV 12.1(H) 8.4 - 12.0 fL [facility] NRBC 0.00 0.00 /100 WBCs [facility] ABSOLUTE NRBC 0.00 0.00 K/uL [facility] Blood 07/10/2024 9:27 AM EDT 07/10/2024 9:32 AM EDT us Juan Bliss MD LAB BLOOD ORDERABLES Final Res ult Performing Organization Address City/[facility]/ZIP Co de Phone Number [address] [address] * C-Reactive Protein (07/10/2024 9:27 AM EDT) C REACTIVE PROTEIN <3.0 0.0 - 4.0 mg/L [facility] Blood 07/10/2024 9:27 AM EDT 07/10/2024 9:32 AM EDT Juan Bliss MD LAB BLOOD ORDERABLES Final Res ult [facility] [address] [place] [address] * HM DEXA SCAN (03/07/2023 5:41 PM EST) us Historical Provider HEALTH MAINTENANCE Final Result from Last 3 Months or Most Recently Relevant to Health Maintenance Insurance [facility] MEDICARE PART A & [place] [id number] [place] [facility] MEDICARE PART A & B Care Teams Manager Mall Relationship Specialty Start Date End Date Ellie Peña MD [facility] [place] [address] PCP - General Family Medicine 06/30/22 Additional Source Comments The information contained in this document represents components of the legal health record. It is not the complete legal health record.[facility]
--- OUTSIDE RECORDS SUMMARY | 2024-09-09 14:23 | XMS_ITS ---
Author Name [facility] Organization Unknown Problems Problem Status Onset Date Problem Type Date of Resoluti on Source Recurrent sinusitis active EncounterDiagnosisAc t CCT Seasonal allergies active EncounterDiagnosisAct CCT Encounters Encounter Type Encounter Reason Primary Diagnosis Location Date Ambulatory Allergies Allergies [facility] 09/06/2024 Care Team Organization Name Specialty Phone Email Start Date End Da kayla Fix8 09/07/2024 Fix8 07/02/2024
[2024-09-11 03:13] LABS: Class Alternaria alternata 0; Class Aspergillus fumigatus 0; Class Bermuda Grass 0; Class Birch 0; Class Cat Dander 0; Class Cladosporium herbarum 0; Class Cockroach 0; Class Common Ragweed 0; Class Cottonwood 0; Class Derm. pterony 0; Class Dermatophagoides farinae 0; Class Dog Dander 0; Class Elm 0; Class Maple Box Elder 0; Class Mountain Cedar 0; Class Mouse Urine Protein 0; Class Mugwort 0; Class Oak 0; Class Penicillium crysogenum 0; Class Rough Pigweed 0; Class Sheep Sorrel 0; Class Sycamore 0; Class Timothy Grass 0; Class Walnut Tree 0; Class White Ash 0; Class White Mulberry 0; D002 - IgE D farinae <0.10 kU/L; E001 - IgE Cat Dander <0.10 kU/L; E005 - IgE Dog Dander <0.10 kU/L; G006 - IgE Timothy Grass <0.10 kU/L; I006-IgE Cockroach, German <0.10 kU/L; M002 - IgE Cladosporium herbar <0.10 kU/L; M003 - IgE Aspergillus fumigat <0.10 kU/L; M006 - IgE Alternaria alternat <0.10 kU/L; T001 IgE Maple/Box Elder <0.10 kU/L; T006 - IgE Cedar, Mountain <0.10 kU/L; T007 - IgE Oak, White <0.10 kU/L; T008 IgE Elm, American <0.10 kU/L; T010 - IgE Walnut <0.10 kU/L; T011 - IgE Maple Leaf Sycamore <0.10 kU/L; T014 - IgE Cottonwood <0.10 kU/L; T015 - IgE Ash, White <0.10 kU/L; T070 - IgE White Mulberry <0.10 kU/L; W001 - IgE Ragweed, Short <0.10 kU/L; W006 - IgE Mugwort <0.10 kU/L; W014 IgE Pigweed, Common <0.10 kU/L; W018 IgE Sheep Sorrel <0.10 kU/L
== END 2024-09-09 14:14 | disposition home or self-care (01) ==
LOC: HO.LAB 14:13
PROVIDERS: Physician Assistant; Visit Provider Physician Assistant Surgical
DX: J30.9 Allergic rhinitis, unspecified (principal)
CPT/HCPCS: 36415; 82785; 86003

== ENCOUNTER 2024-11-25 09:57 | Outpatient (AMB) | payer MEDICARE, MEDICAID, SELFPAY ==
--- NOTE | 2024-11-25 09:58 | MHC.OFFVIS ---
Intake Visit Reasons: 3M/ TN Accompanied by: nurse Irlanda Allergies amoxicillin Allergy (Verified 11/25/24 10:01) Unknown doxycycline Allergy (Verified 11/25/24 10:01) Unknown Penicillins Allergy (Verified 11/25/24 10:01) Unknown sulfamethoxazole (From Bactrim) Allergy (Verified 11/25/24 10:01) Unknown trimethoprim (From Bactrim) Allergy (Verified 11/25/24 10:01) Unknown Medication List - Last Reconciled 11/25/24 by Radha Ibarra CNP amlodipine 5 mg PO DAILY calcium-vitamin D3-vitamin K 500 mg-1,000 unit-40 mcg tabs PO carbamazepine 150 mg PO BID fexofenadine (Petra Allergy) 180 mg PO DAILY PRN fluticasone furoate 50 mcg/actuation inhalation leflunomide (Arava) 20 mg PO DAILY losartan 50 mg PO BID omeprazole 20 mg PO DAILY HPI Comments Details: She was here with Irlanda (community nurse). She was doing good the last few months. She saw ENT (Dr. Mauricio in [place]) in 09/2024 and there were apparently no significant findings. She apparently does not have allergies but was given nasal spray which may helped some and she was taking Petra as needed. She was hardly ever getting sharp, shooting pains. She could drink or blow her nose without triggering pain. She wanted to try to decrease dose of medication. TN pain started in mid-late 05/2024 with allergy symptoms. She was getting some occasional, mild jolts of pain to right maxillary area that could be triggered by eating, touching her face, or using electric toothbrush. At that time, pain was not significantly bothersome. TN symptoms worsened over the next four weeks. She increased carbamazepine dose from 50mg twice a day to 100mg twice a day without significant improvement. At the end of 06/2024, carbamazepine dose was increased to 150mg twice a day and pain was controlled. She had recurrence of TN in 06/2023 which resolved with increasing dose of carbamazepine to 150mg BID. Had recurrence of TN in 02/2023 which resolved with increasing dose of medication to 100mg BID. She also had a mild recurrence of TN on 11/15/22 which resolved with increasing dose of CBZ. She developed acute onset of severe right maxillary pain with pain level 10/10, that would get worse by brushing her teeth, drinking or talking or putting on a mask. She was seen in the emergency room and given antibiotics for sinusitis and went back to the ER 2 days later on next every third because of worsening pain. Facial CT scan was done which was negative for any sinus infection and she was started on carbamazepine 100 mg twice a day for trigeminal neuralgia and had significant improvement. She is able to wash her face and brush her teeth. [facility] Medical History (Updated 08/12/24 @ 10:20 by Radha Ibarra CNP) Trigeminal neuralgia Seizures HTN (hypertension) Rheumatoid arthritis GERD (gastroesophageal reflux disease) Surgical History (Updated 08/08/24 @ 18:26 by Ally Pickering MA) Total knee replacement status Social History (Updated 08/08/24 @ 18:27 by Ally Pickering MA) Patient Tobacco Use Status: Never used Tobacco Review of Systems Const Denies chills, Denies daytime sleepiness, Denies difficulty sleeping, Denies fatigue, Denies fever(s), Denies frequent falls, Denies headache(s), Denies increased appetite, Denies poor appetite, Denies snoring, Denies weakness, Denies weight gain and Denies weight loss Eyes Denies loss of vision ENT Denies vertigo, Denies dizziness, Denies headache(s) and Denies neck pain Card Denies chest pain at rest, Denies chest pain with activity, Denies syncope, Denies leg edema, Denies palpitations, Denies dyspnea and Denies dyspnea on exertion Resp Denies cough, Denies dyspnea, Denies dyspnea on exertion and Denies snoring GI Denies abdominal pain, Denies constipation, Denies heartburn, Denies diarrhea and Denies nausea Denies urinary frequency, Denies urinary incontinence and Denies urinary urgency Musc Denies abnormal gait, Denies back pain, Denies myalgias, Reports arthralgias, Denies neck pain, Denies numbness, Denies stiffness and Denies tingling Neuro Denies abnormal gait, Denies vertigo, Denies dizziness, Denies syncope, Denies frequent falls, Denies headache(s), Denies lack of coordination, Denies loss of vision, Denies memory loss, Denies numbness, Denies Other visual disturbances, Denies restless legs, Denies seizure-like activity, Denies tingling, Denies paresthesias, Denies tremor(s) and Denies weakness Psych Denies anxiety, Denies depression, Denies memory loss, Denies visual hallucinations and Denies hallucinations Endo Denies fatigue and Denies palpitations Physical Exam Const Other: General Appearance:? normal, in no acute distress. Heart:? S1, S2 normal, no murmurs. Lungs:? clear anteriorly and posteriorly. Musculoskeletal:? normal. Extremities:? no edema. Psych:? alert, oriented, cognitive function intact, cooperative with exam. 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 Normal attention, orientation, memory, and affect. Cranial Nerves: Pupils are equal, round, and reactive to light. External ocular muscles are intact. Visual tobar are full, no ptosis. Face is symmetrical, no facial weakness or droop. Facial sensations are normal. Tongue protrudes in midline. Palate elevates symmetrically. Shoulder shrugging is normal Motor Examination: Normal muscle tone, bulk and strength. No atrophy or fasciculations. No drift of the extended upper extremities. DTR 2+. Plantars are flexor. Sensory Exam: Normal light touch, temperature, pinprick, vibration, and joint-position sensations. Rhomberg sign is absent. Coordination: No ataxia. No titubation. Gait Exam: Within normal limits. Cerebellar Signs: [id number] is okay. Extrapyramidal System: No tremor, rigidity with normal facial expressions. No bradykinesia. No bradyphrenia. Normal arm swing and posture. No propulsion or retropulsion. Speech: Normal. No dysphasia or dysarthria. Results Reviewed Results Reviewed: MRI brain 07/27/24 at [facility] [place]: 1. No evidence of intracranial hemorrhage, acute infarction, mass effect, or edema. No abnormal intra or extra-axial enhancement. 2. The 5th cranial nerves are normal in course, caliber, and signal. No abnormal enhancement. Of note, a branch of the right AICA directly abuts the cisternal segment of the right 5th nerve. 3. The remainder of the major cranial nerves are normal in course and caliber without abnormal enhancement. 4. There are mild white matter changes of small vessel ischemia. Assessment & Plan Assessment & Plan (1) Trigeminal neuralgia: Code(s): G50.0 - Trigeminal neuralgia Category: Medical Plan: She was here with community nurse (Irlanda). Pain was well controlled at this time, and she was interested in trying to reduce dose of medication. Decrease carbamazepine 100mg 1 tablet in the morning and 1.5 tablets at bedtime. If pain remains stable after one month, may further decrease carbamazepine 100mg 1 tablet twice a day. She was advised to return to previous dose if pain worsens and to contact office. Follow up in 6 months or sooner if needed. Coding Level of Care Code Est Pt Level 4 (84026) Diagnoses Trigeminal neuralgia G50.0
--- OUTSIDE RECORDS SUMMARY | 2024-11-25 11:17 | XMS_ITS | Clinical Summary ---
Author Organization [facility] Address [address] [place] [address] Care Team Providers Care Roofer Metal Name Role Phone Unavailable Primary Care Provider Unavailabl e Allergies Active Allergy Reactions Criticality Noted Date Comments Doxycycline Unknown/Patient and Family Unable to Define Medium 12/01/2019 Penicillins Rash/Dermatitis Low 02/13/2011 Sulfamethoxazole-Trimethopri m Hives,Rash/Dermatitis,Swe lling Medium 08/14/2023 Medications losartan (COZAAR) 50 MG tablet Take 50 mg by mouth 2 times a day. Active Calcium Carb-Cholecalci ferol 500-10 MG-MCG Chew Tab Chew 1 tablet. Active amLODIPine (NORVASC) 5 MG tablet Take 5 mg by mouth 2 times a day. Active loratadine (CLARITIN) 10 MG tablet Take 10 mg by mouth Once before discharge. Active carBAMazepine (TEGretol) 100 MG chewable tablet Chew 100 mg 2 (two) times a day. Active OMEprazole (PriLOSEC) 20 MG capsule Take 20 mg by mouth every morning before breakfast. Active ipratropium (ATROVENT) 0.03 % nasal sprayIndication s:Postnasal drip 2 sprays into each nostril 2 (two) times a day. 30 mL 3 09/16/2024 Active Active Problems No known active problems Encounters Date Type Department Care Team Description 09/16/2024 Telephone [facility] [place] [address] [place] [address] Katheryn Katz PA-C 09/16/2024 Orders Only [facility] [place] [address] [place] [address] Katz, Katheryn, PA-C Postnasal drip (Primary Dx) 09/06/2024 9:15 AM EDT Office Visit [facility] [address] [place] [address] Katheryn Katz PA-C Allergic rhinitis, unspecified seasonality, unspecified trigger (Primary Dx); Postnasal drip; Bilateral impacted cerumen from Last 3 Months Social History Tobacco Use Types Packs/Day Years Used Date Smoking Tobacco: Never Assessed Comments Unknown Sex and Gender Information Value Date Recorded Sex Assigned at Female 07/02/2024 9:24 AM EDT Legal Sex Female 11:12 AM EDT Gender Identity Female 07/02/2024 9:24 AM EDT Sexual Orientation Heterosexual (straight) 07/02 9:24 AM EDT Last Filed Vital Signs Vital Sign Reading Time Taken Comments Blood Pressure - - Pulse - - Temperature - - Respiratory Rate - - Oxygen Saturation - - Inhaled Oxygen Concentration - - Weight 65.8 kg (145 lb) 09/06/2024 9:19 AM EDT Height 152.4 cm (5') 09/06/2024 9:19 AM EDT Body Mass Index 28.32 09/06/2024 9:19 AM EDT Plan of Treatment Health Maintenance Due Date Last Done Comments Advance Care Planning 1940 DTaP/Tdap/Td Vaccines (1 - Tdap) 11/17/1958 Pneumococcal Vaccines 50+ (1 of 1 - PCV) 11/17/1989 Zoster (Shingles) Vaccine (1 of 2) 11/17/1989 DXA Bone Density (Females,Ages 65 and older) 11/17/2004 RSV Vaccine 50 years and older and Patients (1 - 1-dose 75+ series) 11/17/2014 Influenza Vaccine 09/06/2024 11/17/2023, 11/29/2016 COVID-19 Vaccine (2024-2 6 season) 2024 12/02/2023, 04/07/2020, 03/17/2020 Hepatitis B Vaccines Aged Out No long er eligible based on patient's age to complete this topic Insurance MEDICARE PART A & B [facility]
== END 2024-11-25 10:16 | disposition home or self-care (01) ==
LOC: HO.HSM 09:57
PROVIDERS: PCP Family Medicine; Visit Provider Registered Nurse
DX: G50.0 Trigeminal neuralgia (principal)
CPT/HCPCS: 99214

== ENCOUNTER → 2024-11-25 09:57 | Outpatient (BNVA) | payer MEDICARE, MEDICAID, SELFPAY | PROVIDERS: PCP Family Medicine; Visit Provider Registered Nurse | DX: G50.0 Trigeminal neuralgia (principal) | CPT/HCPCS: 99212 ==